=== PATIENT | female | born 1960 | race Caucasian/White ===

== ENCOUNTER 2020-11-19 13:12 | Emergency (ER) | payer OTHER, SELFPAY ==
--- NOTE | 2020-11-19 | ECG_ITS ---
Test Reason : MED CLEARANCE Blood Pressure : / mmHG Vent. Rate : 075 BPM Atrial Rate : 075 BPM P-R Int : 142 ms QRS Dur : 076 ms QT Int : 396 ms P-R-T Axes : 056 067 080 degrees QTc Int : 442 ms Normal sinus rhythm Normal ECG No previous ECGs available Referred By: Dagmar Cruz Electronically Signed By:Andrea Davis
[2020-11-19 13:14] VITALS: BP 129/77; PULSE 119; RESP 18; TEMP 36.7; O2SAT 98; BMI 25.0
[2020-11-19 13:25] VITALS: BP 136/95; PULSE 114; RESP 18; TEMP 36.9; O2SAT 98
[2020-11-19 13:41] VITALS: BP 136/95; PULSE 114; RESP 16; TEMP 33; O2SAT 98
[2020-11-19 14:17] LABS: COVID-19 Test Negative (Negative); IDNOW Serial# 9DD0AD1C
--- NOTE | 2020-11-19 14:29 | ED.PSYCH ---
HPI - Psych General Chief Complaint: Psychiatric Symptoms Stated Complaint: psych eval Time Seen by Provider: 11/19/20 14:17 Source: patient and EMS Mode of arrival: EMS Limitations: no limitations History of Present Illness HPI Narrative: Patient comes to the emergency room complaining of visual hallucinations. Patient states that for the last 3 weeks she has been seeing ?squiggly lines moving around and floating puddles of yellow oil . Patient states that she was trying to cross the street, does not remember stopping and not moving. Related Data Allergies Allergy/AdvReac Type Severity Reaction Status Date / Time ampicillin [AMPICILLIN] Allergy Unknown RASH Unverified 01/23/20 15:19 Ampicillin Allergy Unknown Uncoded 04/05/12 00:00 Review of Systems Review of Systems: Constitutional : No Weight loss, No Fever, No Chills, No Night Sweats, No Fatigue, No Malaise ENT/Mouth : No Hearing loss, No Ear Pain, No Nasal Congestion, No Sinus Pain, No Hoarseness, No sore throat, No Rhinorrhea, No Swallowing Difficulty Eyes: No Eye Pain, No Swelling, No Redness, No Foreign Body, No Discharge, No Vision Changes Cardiovascular : No Chest Pain, No SOB, No Dyspnea on Exertion, No Orthopnea, No Edema, No Palpitations Respiratory : No Cough, No Sputum, No Wheezing, No Smoke Exposure, No Dyspnea Gastrointestinal : No Nausea, No Vomiting, No Diarrhea, No Constipation, No abdominal Pain, No Hematochezia, No Melena Genitourinary : no irregular bleeding, No Dysuria, No Urinary Frequency, No Hematuria, No Urinary Incontinence, No Urgency, No Flank Pain, No Urinary Flow Changes, No Hesitancy Musculoskeletal : No joint pain, No Myalgias, No Joint Swelling Skin : No Skin Lesions, No rash Neuro : No Weakness, No Numbness, No Paresthesias, No Loss of Consciousness, No Dizziness, No Headache Psych : Complaining of feeling very anxious, having visual hallucinations Heme/Lymph: No Bruising, No Bleeding,No Lymphadenopathy Endocrine : No Polyuria, No Polydipsia, No Temperature Intolerance [facility] Past Medical History Medical History (Updated 11/19/20 @ 14:32 by Emperatriz Suárez MD) Hallucinations Social History Social History Advance Directives: Yes Advance Directives Information Provided: No Advance Directives on File: No Physical Exam Vital Signs: Vital Signs: Last Vital Signs Temp 91.4 F L 11/19/20 13:41 Pulse 114 H 11/19/20 13:41 Resp 16 11/19/20 13:41 BP 136/95 H 11/19/20 13:41 Pulse Ox 98 11/19/20 13:41 Body Mass Index 25.0 Appearance: Alert. Oriented X3. Tearful, anxious Eyes: Pupils equal, round and reactive to light. ENT: Pharynx normal. Neck: Normal inspection. Neck supple. No lymph nodes noted. No crepitus CVS: Normal heart rate and rhythm. Pulses normal. Normal S1 and S2 Respiratory: No respiratory distress. Breath sounds normal. No Wheezing. No rales Abdomen: Soft and nontender. No rigidity. No distention. good BS x4 Skin: Skin warm and dry. Normal skin color. Normal skin turgor. Extremities: No lower extremity edema. No lower extremity edema. No Lacerations. No Rash Neuro: Oriented X 3. No motor deficit. No sensory deficit. Moving all extermities. No slurred speech Psych: Tearful, anxious, complaining of visual hallucinations at this time MDM - Psych Lab Data Labs: Lab Results 11/19/20 Range/Units 13:55 COVID-19 ([facility]OBERT) Negative (Negative) COVID-19 Clin Com See Note
[2020-11-19 15:10] LABS: Glucose Urine UA NEG (NEG); Leukocyte Esterase Urine NEG (NEG); Nitrite Urine NEG (NEG); Specific Gravity - Urine >= 1.030 (1.005-1.025); Urine Blood NEG (NEG); Urine Ketones NEG (NEG); Urine Protein NEG (NEG-TRACE)
[2020-11-19 15:21] LABS: Appearance Urine CLEAR; Color Urine YELLOW
[2020-11-19 15:39] LABS: Amphetamine Screen Urine Not Detected (Not Detect); Barbiturates, Urine Not Detected (Not Detect); Benzodiazepines Screen Urine Not Detected (Not Detect); Cannabinoid Screen Urine POSITIVE (Not Detect); Cocaine Screen Urine Not Detected (Not Detect); Opiate Screen Urine Not Detected (Not Detect); Phencyclidine Screen Urine Not Detected (Not Detect)
[2020-11-19 15:43] VITALS: BP 144/92; PULSE 98; RESP 17; TEMP 36.4; O2SAT 98
--- NOTE | 2020-11-19 19:41 | PC.NURSE ---
Patient in bed resting quietly, no distress observed/reported, no behavioral concerns at this time, [facility] called and spoke Felisha, confirmed receipt of referral ETA is overnight shift, will continue to monitor
[2020-11-19 19:56] LABS: MANUAL DIFF FLAG NO
[2020-11-19 20:16] LABS: Basophils Percent Auto 0.3 % (0-2); Eosinophils Percent Auto 0.1 % (0-4); Hematocrit 37.1 % (37-47); Hemoglobin 12.7 g/dl (12.0-16.0); Imm Gran Abs Auto 0.03 X10*3/uL (0.00-0.03); Imm Gran Pct Auto 0.3 % (0.0-0.4); Lymphocytes Percent Auto 27.2 % (20-40); Mean Corpuscular HGB Conc 34.2 g/dl (31.0-35.0); Mean Corpuscular Hemoglobin 31.4 pg (27.0-33.0); Mean Corpuscular Volume 91.6 fL (80-98); Mean Platelet Volume 10.2 fL (9.4-12.3); Monocytes Absolute Auto 0.9 X10*3/uL (0.1-1.2); Monocytes Percent Auto 8.3 % (2-11); Neutrophils Percent Auto 63.8 % (45-73); Platelet Count 378 X10*3/uL (160-400); Red Blood Count 4.05 X10*6/uL (4.20-5.50); Red Cell Distribution Width 13.1 % (11.0-16.0)
[2020-11-19 20:17] LABS: Alanine Aminotransferase 10 U/L (0-31); Albumin Level 4.2 g/dL (3.5-5.0); Alkaline Phosphatase 74 U/L (39-117); Anion Gap 14 (12-20); Aspartate Amino Transferase 14 U/L (5-31); Bilirubin Direct 0.2 mg/dL (0.0-0.5); Bilirubin Total 0.5 mg/dL (0.0-1.0); Blood Urea Nitrogen 14 mg/dL (9-16); Calcium 9.8 mg/dL (8.4-10.2); Carbon Dioxide 28 mmol/L (22-29); Chloride 104 mmol/L (96-108); Creatinine Clr Calc Pharmacy 39.2; Estimated Glomerular Filt Rate 39; Glucose Random 115 mg/dL (60-115); Magnesium 2.2 mg/dL (1.6-2.6); Potassium 4.9 mmol/L (3.3-5.1); Sodium 141 mmol/L (135-145); Total Protein 6.8 g/dL (6.5-8.0)
[2020-11-19 20:38] LABS: Thyroid Stimulating Hormone 8.22 uIU/mL (0.32-4.0)
--- NOTE | 2020-11-19 23:02 | MHC.CARE ---
CARE team met with pt who reports she was experiencing visual hallucinations today and also paranoia because she couldn't get off her couch. Pt denies SI/HI. She denies no hx of attempts. She denies any hx of hospitalizations. She reports she has med prescriber and therapist through [facility]. She is compliant with her medications. She is positive today for cannabis and can likely be the reason for her hallucinations. Pt lives alone, she reports she found herself walking to the street. She states she hasn't slept, poor appetite and states when she does hallucinate she sees lights . Pt is able to recognize that she was hallucinating and that it wasn't real. She reports this has happened to her once before. Pt reports her diagnosis is bipolar but her moods are steady . She has an adult son who she reports is irresponsible and she tries to have a good relationship with her dad but feels that her mother interferes . She does not have a good relationship with her mother and she becomes tearful when speaking of her. Pt reports she is not working right now, lives alone, owns a house in [place], and reports she is financially stable' noting that all she has left to pay off her house is 3,000$ and 100k in half-way . Pt is not at imminent risk to self or others, even with the hallucinations. She will be d/c home with safety plan in which she was agreeable to. Pt reports interest in [facility] and an email will be sent with her information and pt was advised to call partial tomorrow to follow up.
== END 2020-11-19 23:00 | disposition home or self-care (01) ==
PROVIDERS: Nurse Practitioner Family; Emergency Provider Emergency Medicine; PCP Internal Medicine
DX: F12.929 Cannabis use, unspecified with intoxication, unspecified (principal); R44.1 Visual hallucinations; Z20.822 Contact with and (suspected) exposure to COVID-19
CPT/HCPCS: 36415; 80048; 80076; 80307; 81003; 83735; 84443; 85025; 87635; 93005; 99285

== ENCOUNTER 2021-04-30 11:03 | Outpatient (REF) | payer OTHER, SELFPAY ==
--- NOTE | ~2021-04-30 | XR_ITS ---
EXAMINATION: XR ANKLE, LEFT CLINICAL INFORMATION: Sprain COMPARISON: None TECHNIQUE: AP, lateral, and mortise views of the left ankle. XR/XR ankle LT min 3V FINDINGS/IMPRESSION: Acute mildly displaced fracture of the distal fibular metadiaphysis. On the lateral view is a 7 mm osseous fragment anterior to the distal tibia, of unclear donor site. No significant widening of the medial clear space. Soft tissue swelling along the lateral malleolus. Large tibiotalar joint effusion.
== END 2021-04-30 11:04 | disposition home or self-care (01) ==
LOC: HO.HMGCX 11:03
PROVIDERS: PCP Internal Medicine; Visit Provider Internal Medicine
DX: S93.402D Sprain of unspecified ligament of left ankle, subsequent encounter (principal)
CPT/HCPCS: 73610

== ENCOUNTER 2021-05-13 07:36 | Outpatient (REF) | payer OTHER, SELFPAY ==
--- NOTE | ~2021-05-13 | XR_ITS ---
EXAMINATION: XR ANKLE, LEFT CLINICAL INFORMATION: Pain and unspecified ankle and joint COMPARISON: None TECHNIQUE: 3 views of the left ankle. FINDINGS: Oblique fracture of the distal fibula appears similar to prior with likely mild healing changes (the fracture lucency is less apparent). No bridging callus. Again seen is an ossific fragment measuring 4 mm anterior to the distal tibia which is presumably from the anterior tibia. The joint effusion has decreased in size. No widening of the medial clear space. The lateral soft tissue swelling has improved. XR/XR ankle LT min 3V IMPRESSION: Early healing changes across the distal fibular fracture. Fracture fragment anterior distal tibia unchanged. Improved soft tissue swelling and joint effusion.
== END 2021-05-13 07:37 | disposition home or self-care (01) ==
LOC: HO.HOSX 07:36
PROVIDERS: Visit Provider Physician Assistant
DX: S82.832A Other fracture of upper and lower end of left fibula, initial encounter for closed fracture (principal)
CPT/HCPCS: 73610; 99202

== ENCOUNTER 2021-06-10 08:28 | Outpatient (REF) | payer OTHER, SELFPAY ==
--- NOTE | ~2021-06-10 | XR_ITS ---
EXAMINATION: XR ANKLE, LEFT CLINICAL INFORMATION: Pain in the ankle. COMPARISON: 05/13/2021 TECHNIQUE: AP, lateral, and mortise views of the left ankle. FINDINGS: Redemonstration of the obliquely oriented distal fibular fracture extending to the ankle mortise. The fracture line remains evident. There is evidence of some interval healing with callus formation. The ankle mortise is congruent. No ankle joint effusion. Mild lateral soft tissue swelling. XR/XR ankle LT min 3V IMPRESSION: Continued healing of the distal fibular fracture with alignment maintained.
== END 2021-06-10 08:29 | disposition home or self-care (01) ==
LOC: HO.HOSX 08:28
PROVIDERS: Visit Provider Physician Assistant
DX: S82.832D Other fracture of upper and lower end of left fibula, subsequent encounter for closed fracture with routine healing (principal)
CPT/HCPCS: 73610; 99212

== ENCOUNTER 2022-05-06 19:25 | Outpatient (REF) | payer OTHER, SELFPAY ==
[2022-05-06 19:44] LABS: Appearance Urine Clear; Color Urine Yellow; Glucose Urine UA Negative (Negative); Leukocyte Esterase Urine Moderate (2+) (Negative); Nitrite Urine Negative (Negative); PH 5.5 (5.0-9.0); Specific Gravity - Urine <= 1.005 (1.005-1.025); UMIC TRIGGER UACC YES; Urine Blood Trace (Negative); Urine Ketones Negative (Negative); Urine Protein Negative (Neg-Trace)
[2022-05-06 19:52] LABS: Bacteria Urine 3+ (None Seen); Hyaline Casts Urine 0-2 /LPF (0-2); RBC Urine 0-2 /HPF (0-2); Squamous Epithelial Cell Urine 0-2 /HPF (0-2); UACC Culture Trigger YES
== END 2022-05-06 19:26 | disposition home or self-care (01) ==
LOC: HO.LNP 19:25
PROVIDERS: Visit Provider Physician Assistant Medical
DX: R30.0 Dysuria (principal)
CPT/HCPCS: 81001; 87086; 87088; 87186

== ENCOUNTER 2023-12-11 13:17 | Outpatient (AMB) | payer OTHER, SELFPAY ==
--- NOTE | 2023-12-11 14:35 | MHC.OFFWIV ---
Intake Vital Signs 12/11/23 14:39 Height 5 ft 5 in BP 128/76 Blood Pressure Location Rt brachial Position Sitting Pulse 76 Pulse Source Pulse Oximeter Temp 98.0 F Temp Source Oral Pulse Oximetry (%) 97 Oxygen Delivery Method Room Air Intake Visit Reasons: left upper leg, dog bite Intake Note: pt is here for left upper leg, dog bite Patient Tobacco Use Status: Current someday Tobacco user Allergies ampicillin [AMPICILLIN] Allergy (Unknown, Verified 12/11/23 14:35) RASH Ampicillin Allergy (Unknown, Uncoded 05/06/22 13:40) Rash Do you need a note to return to daycare/school/sports/work: No HPI left upper leg, dog bite HPI Details This note is constructed using voice recognition software. While every effort has been made to ensure accuracy, bead forming machine set up operator errors may have been included. The patient is a 63 year old female who presents to the clinic today with dog bite which occurred today. She notes that she was in the park when a dog tripped up at her and she sustained abrasion type injury to the left upper leg. There was no puncture wounds. She reports that she is up-to-date on her tetanus shot. The dog was wearing collar, with tags, and was with the chef & owner who restrain the dog. There was no additional injury. She did not get any contact information for the order of the dog. [facility] Medical History Hallucinations Social History Alcohol intake: never Patient Tobacco Use Status: Current someday Tobacco user Substance Use Type: Marijuana Review of Systems Const All systems reviewed & are unremarkable except as noted in HPI and below Physical Exam Vital Signs: Last Vital Signs Temp 98.0 F 12/11/23 14:39 Pulse 76 12/11/23 14:39 BP 128/76 12/11/23 14:39 Pulse Ox 97 12/11/23 14:39 Oxygen Delivery Method Room Air 12/11/23 14:39 Const General: cooperative, healthy appearing, comfortable, no acute distress and alert Orientation/consciousness: patient oriented x3 Limitations: no limitations Resp Effort & Inspection: normal respiratory effort and able to speak in complete sentences Auscultation: clear to auscultation bilaterally Cardio Jugular venous distension: no JVD Palpation: normal PMI Rate: regular rate Heart sounds: S1 normal heart sound present, S2 normal heart sound present, no click, no gallops, no murmurs and no rubs Skin Other: Linear abrasion x2 to left upper leg, no discharge, no puncture wound. No surrounding erythema, no warmth. General skin exam: no rashes or lesions noted, elasticity normal and turgor normal Neuro General: patient oriented x3 Extrem General: Yes normal to inspection, Yes full ROM, Yes capillary refill normal and Yes normal exam except as noted Psych Appearance: grossly normal Mental Status: mental status grossly normal Speech and movement: Normal speech and movement present Affect: normal affect Assessment & Plan Assessment & Plan (1) Dog bite: Code(s): W54.0XXA - Bitten by dog, initial encounter Qualifiers: Encounter type: initial encounter Qualified Code(s): W54.0XXA - Bitten by dog, initial encounter Plan: Given lack of puncture wound, and the fact that this dog was a domesticated dog, the risk associated with rabies is very low. She is up-to-date on her tetanus shot, so does not need that today. I advised her to keep the area clean, dry, and monitor for signs of secondary bacterial infection including erythematous streaking, warmth, discharge. Patient agreed with the plan of care, and will follow up as needed with worsening or failure to resolve. Plan See above for full details and plan. Coding Level of Care Code Est Pt Level 3 (87397) Diagnoses Dog bite, initial encounter W54.0XXA Encounter type: initial encounter
[2023-12-11 14:39] VITALS: BP 128/76; PULSE 76; TEMP 36.7; O2SAT 97
== END 2023-12-11 15:32 | disposition home or self-care (01) ==
PROVIDERS: PCP Internal Medicine; Visit Provider Registered Nurse
DX: S70.312A Abrasion, left thigh, initial encounter (principal); W54.0XXA Bitten by dog, initial encounter
CPT/HCPCS: 99213

== ENCOUNTER 2024-05-13 09:48 | Outpatient (AMB) | payer OTHER, SELFPAY ==
--- NOTE | 2024-05-13 11:17 | AM.OFFWIN_ITS ---
Intake Vital Signs 05/13/24 11:18 Weight 150 lb BP 104/70 Blood Pressure Location Lt brachial Position Sitting Pulse 62 Pulse Source Pulse Oximeter Temp 97.9 F Temp Source Oral Pulse Oximetry (%) 98 Oxygen Delivery Method Room Air Intake Visit Reasons: EP Cough, tightness in chest, upper respiratory Intake Note: Patient here for cough, chest tightness which started yesterday. Patient Tobacco Use Status: Current someday Tobacco user Allergies ampicillin [AMPICILLIN] Allergy (Unknown, Verified 05/13/24 11:31) RASH Ampicillin Allergy (Unknown, Uncoded 05/13/24 11:31) Rash Medication List - Last Reconciled 05/13/24 by Trista Snow PA-C aripiprazole 5 mg PO DAILY bupropion HCl SR 1 tab PO BID hydroxyzine HCl 1 tab PO BID PRN levothyroxine 1 tab PO DAILY Do you need a note to return to daycare/school/sports/work: No HPI EP Cough, tightness in chest, upper respiratory HPI Details The patient is a 63-year-old female presenting with rib pain and a history of an upper respiratory infection. She has experienced symptoms since New Year?s Isabel and reports a progression to lower ribcage tightness and pain, located in the front and along the back upper and lower spine. The patient noted initially experiencing fevers and mucus production, which have since resolved, leaving primarily rib pain exacerbated by deep breaths. There is no reported history of asthma, but she is a smoker, suggesting possible COPD. Initial symptoms have improved except for persistent rib cage discomfort. [facility] Medical History Hallucinations Social History Alcohol intake: never Patient Tobacco Use Status: Current someday Tobacco user Substance Use Type: Marijuana Review of Systems Const Details: - Respiratory: Reports cough with previous mucus production. Denies SOB, MONTANEZ, orthopnea - General: Denies current fever or chills. - Neurological: Denies dizziness. - Gastrointestinal: Denies abdominal pain. - Cardiovascular: Denies leg swelling. Physical Exam Vital Signs: Last Vital Signs Temp 97.9 F 05/13/24 11:18 Pulse 62 05/13/24 11:18 BP 104/70 05/13/24 11:18 Pulse Ox 98 05/13/24 11:18 Oxygen Delivery Method Room Air 05/13/24 11:18 Const Other: Appearance: Alert. Oriented X3. No acute distress. Head: Normal external exam. Normocephalic. Atraumatic. Eyes: Pupils are equal, round, and reactive to light. Extraocular movements intact. Conjunctiva and sclera normal. Eyelids normal. Ears: Normal Hearing Throat: Pharynx normal. Uvula midline. Moist mucous membranes. No trismus noted. No drooling noted. No muffled voice noted. Neck: Normal inspection. Neck supple. Full range of motion. No meningeal signs. No neck mass noted. Cardiovascular: Normal heart rate and rhythm. Heart sound normal. No murmurs noted. Pulses normal throughout. Respiratory: No respiratory distress. Painless inspiration. Breath sounds normal. No wheezes/rales/rhonchi noted. Chest nontender. No accessory muscle usage noted or decreased air movement noted. Rib pain noted on deep breaths. Abdomen: Soft and nontender. No distention noted. No organomegaly noted. Back: No costovertebral angle tenderness. Full range of motion noted. Pain noted along the upper back near the spinal cord. Skin: Skin warm and dry. Normal skin color. Normal skin turgor. No rashes/lesions/lacerations noted. Extremities: No lower extremity edema. Extremities exhibit normal range of motion. Extremities nontender. Neuro: Oriented X 3. No motor deficit. No sensory deficit. Reflexes normal. Assessment & Plan Assessment & Plan (1) Costochondritis: Code(s): M94.0 - Chondrocostal junction syndrome [Tietze] Plan: naproxen and flexeril (2) Cough: Code(s): R05.9 - Cough, unspecified Plan: improved no abx's indicated at this time. Plan Patient with Costochrondritis. Reproducible lower rib cage pain and lower back pain. Lungs CTA. Normal Vitals. No LE edema. Recent URI symptoms. Will order CXR. Then DC home with Naproxen and flexeril. With instructions to return if any new or worsening symtpoms. Considered PNA although cough improved and patient afebrile. H&P not c/w PNA, PE, CHF, Pneumothorax, Rib fx, cancer, dissection. Orders: Orders XR chest 2V Today M94.0 - Chondrocostal junction syndrome [Tietze], R05.9 - Cough, unspecified Medications: New naproxen 500 mg PO BID 14 tabs 0RF costochrondritis cyclobenzaprine 10 mg PO Q8H 14 tabs 0RF costochrondritis Coding Level of Care Code Est Pt Level 4 (78834) Diagnoses Costochondritis M94.0 Cough R05.9
[2024-05-13 11:18] VITALS: BP 104/70; PULSE 62; TEMP 36.6; O2SAT 98
== END 2024-05-13 12:26 | disposition home or self-care (01) ==
PROVIDERS: PCP Internal Medicine; Visit Provider Physician Assistant Medical
DX: M94.0 Chondrocostal junction syndrome [Tietze] (principal); R05.9 Cough, unspecified

== ENCOUNTER 2024-05-13 09:48 | Outpatient (REF) | payer OTHER, SELFPAY ==
--- NOTE | ~2024-05-13 | XR_ITS ---
EXAMINATION: XR CHEST CLINICAL INFORMATION: R05.9 - Cough, unspecified COMPARISON: None available. TECHNIQUE: 2 views of the chest were obtained. FINDINGS: No significant abnormality is noted involving the heart, lungs, mediastinum, bony thorax or soft tissues. XR/XR chest 2V IMPRESSION: Unremarkable chest examination. Electronically signed by: Don Garcia MD 05/13/2024 11:46 AM [facility]
== END 2024-05-13 09:49 | disposition home or self-care (01) ==
LOC: HO.HMGCX 09:48
PROVIDERS: PCP Internal Medicine; Visit Provider Physician Assistant Medical
DX: R05.9 Cough, unspecified (principal); M94.0 Chondrocostal junction syndrome [Tietze]
CPT/HCPCS: 71046; 99212

== ENCOUNTER → 2024-05-13 11:33 | Outpatient (BNV) | payer OTHER, SELFPAY | PROVIDERS: PCP Internal Medicine; Visit Provider Radiology Diagnostic Radiology | DX: R05.9 Cough, unspecified (principal) | CPT/HCPCS: 71046 ==